=== PATIENT | female | born 1965 | race Caucasian/White ===

== ENCOUNTER → 2023-08-29 07:35 | Outpatient (REF) | payer BC, SELFPAY | LOC: MRI 07:35 | PROVIDERS: ATTENDING PHYSICIAN Internal Medicine; FAMILY PHYSICIAN Family Medicine | DX: G95.0 Syringomyelia and syringobulbia (principal); R20.0 Anesthesia of skin; R20.2 Paresthesia of skin; M25.511 Pain in right shoulder | CPT/HCPCS: 72146; 72148; 73221 ==